=== PATIENT | male | born 1965 | race Caucasian/White ===

== ENCOUNTER 2019-05-27 11:25 | Observation (INO) | payer MEDICARE, MEDICAID ==
[~2019-05-27] VITALS: Ht 165.1 cm; Wt 42.8 kg
[2019-05-27 11:35] VITALS: BP 107/65
[2019-05-27] MEDS ORDERED: SODIUM CHLORIDE 0.9% 1,000 ML IV ONE (11:45)
--- NOTE | 2019-05-27 11:53 | NUR ---
PT CAME IN CO OF LUQ ABD PAIN. PT WAS SENT FROM HIS GI DOC WHO PEFORMED AND ENDOSCOPY THIS MORNING AND FOUND THAT THERE WAS STILL FOOD IN HIS STOMACH EVEN THOUGH HE HASNT EATEN SINCE YESTERDAY AT 1600. THERE IS A BLOCKAGE FROM THE STOMACH TO THE DUODENUM. MD IS BEDSIDE FOR ASSESSMENT
[2019-05-27] MEDS ORDERED: SODIUM CHLORIDE FLUSH 10ML SYR IVF ONE (12:00)
[2019-05-27 12:22] LABS: BASOPHILS # (AUTO) 0.03 x10^3/uL (0-0.1); BASOPHILS % (AUTO) 0 % (0-1); EOSINOPHILS % (AUTO) 3 % (1-7); LYMPHOCYTES # (AUTO) 1.36 x10^3/uL (1-3.4); LYMPHOCYTES % (AUTO) 15 % (22-44); MD NO; MEAN CORPUSCULAR HEMOGLOBIN 31.9 pg (27.5-34.5); MEAN CORPUSCULAR HGB CONC 33.9 g/dL (33.2-36.2); MEAN CORPUSCULAR VOLUME 94.1 fL (81-97); MEAN PLATELET VOLUME 7.4 fL (7.4-10.4); MONOCYTES # (AUTO) 0.34 x10^3/uL (0.2-0.8); MONOCYTES % (AUTO) 4 % (2-9); NEUTROPHILS % (AUTO) 77 % (42-75); PLATELET COUNT 190 x10^3/uL (130-400); RED BLOOD COUNT 4.16 x10^6/uL (4.38-5.82); RED CELL DISTRIBUTION WIDTH 13.7 % (9.4-14.8)
[2019-05-27 12:28] LABS: ALANINE AMINOTRANSFERASE 10 U/L (12-78); ALBUMIN 3.7 g/dL (3.4-5.0); CALCIUM 9.3 mg/dL (8.5-10.1); CREATININE 0.88 mg/dL (0.7-1.3)
[2019-05-27 12:34] LABS: ALKALINE PHOSPHATASE 72 U/L (45-117); ANION GAP 4 mmol/L (5-15); BILIRUBIN,TOTAL 0.3 mg/dL (0.2-1.0); CHLORIDE 105 mmol/L (98-107); TOTAL PROTEIN 6.9 g/dL (6.4-8.2)
[2019-05-27] MEDS ORDERED: CHLORHEXIDINE 15 ML UDC ONE (13:17)
[2019-05-27] MEDS ORDERED: ROCURONIUM 10 MG/ML,10ML ONE (13:38)
[2019-05-27] MEDS ORDERED: SUCCINYLCHOLINE 20 MG/ML, 10ML ONE (13:38)
[2019-05-27] MEDS ORDERED: ONDANSETRON 2MG/ML, 2ML ONE (13:38)
[2019-05-27] MEDS ORDERED: SUGAMMADEX 200 MG/2 ML IVPush ONE (13:38)
[2019-05-27] MEDS ORDERED: DEXAMETHASONE 4 MG/ML, 1ML ONE (13:38)
[2019-05-27] MEDS ORDERED: PROPOFOL 10 MG/ML, 20ML ONE (13:38)
[2019-05-27] MEDS ORDERED: LABETALOL 5MG/ML, 20ML IV PRN (14:30)
[2019-05-27] MEDS ORDERED: PROMETHAZINE 12.5 MG SUPP PR PRN (14:30)
[2019-05-27] MEDS ORDERED: MIDAZOLAM 1 MG/ML, 2ML IV PRN (14:30)
[2019-05-27] MEDS ORDERED: hydrALAzine 20 MG/ML, 1ML IV PRN (14:30)
[2019-05-27] MEDS ORDERED: PROMETHAZINE 25 MG/ML, 1ML IV PRN (14:30)
[2019-05-27] MEDS ORDERED: ONDANSETRON 2MG/ML, 2ML IV PRN (14:30)
[2019-05-27] MEDS ORDERED: OXYcodone 5 MG/5 ML ORAL.SOL UDC PO PRN (14:30)
[2019-05-27] MEDS ORDERED: ALBUTEROL SULFATE 2.5 MG/3 ML NPPB PRN (14:30)
[2019-05-27] MEDS ORDERED: HYDROmorphone 1 MG/ML, 1ML INJ IVPush PRN (14:30)
[2019-05-27] MEDS ORDERED: MEPERIDINE/PF 25MG/ML,1ML IVPush PRN (14:30)
[2019-05-27] MEDS ORDERED: HALOPERIDOL 5 MG/ML IV PRN (14:30)
[2019-05-27] MEDS ORDERED: EPHEDRINE 50 MG/ML, 1ML IVPush PRN (14:30)
[2019-05-27] MEDS ORDERED: DIAZEPAM 5 MG/ML, 2ML IVPush PRN (14:30)
[2019-05-27] MEDS ORDERED: FENTANYL PF 100 MCG/2ML IV PRN (14:30)
[2019-05-27] MEDS ORDERED: ONDANSETRON ODT 8 MG PO PRN (14:30)
== END 2019-05-27 22:00 | disposition home or self-care (01) ==
LOC: ED 12:14 → EDIP 12:56
PROVIDERS: ADMIT Internal Medicine Geriatric Medicine; ATTEND Internal Medicine Geriatric Medicine
DX: K31.1 Adult hypertrophic pyloric stenosis (principal); G89.29 Other chronic pain; K21.9 Gastro-esophageal reflux disease without esophagitis; F17.210 Nicotine dependence, cigarettes, uncomplicated; Z88.2 Allergy status to sulfonamides; Z88.6 Allergy status to analgesic agent
CPT/HCPCS: 36415; 43245; 71045; 80053; 85025; 93005; 99285; C1725; G0378; J0330; J1100; J2405; J2704